=== PATIENT | male | born 1970 ===

== ENCOUNTER 2016-07-11 13:04 | Emergency (ER) | payer MEDICAID, OTHER ==
[2016-07-11 13:05] VITALS: BMI 31.6
[2016-07-11 13:47] VITALS: TEMP 98.4; O2SAT 97
--- NOTE | 2016-07-11 14:13 | C.PDOC ---
History Of Present Illness 46 year old male presents to the ED with complaints of an itchy rash to his upper back that spread throughout his body for the past 4 days. Patient has not taken anything for it and denies difficulty breathing, swelling, fever, new medications, new food, or any other complaints at this time. Time Seen by Provider: 07/11/16 14:04 Chief Complaint (Nursing): Abnormal Skin Integrity History Per: Patient History/Exam Limitations: no limitations Onset/Duration Of Symptoms: Days Current Symptoms Are (Timing): Still Present Quality Of Symptoms: Itching Severity: Mild Past Medical History Reviewed: Historical Data, Nursing Documentation, Vital Signs Vital Signs: Last Vital Signs Temp 98.4 F 07/11/16 13:44 Pulse 78 07/11/16 14:56 Resp 17 07/11/16 14:56 BP 138/72 07/11/16 14:56 Pulse Ox 97 07/11/16 17:59 - Medical History PMH: No Chronic Diseases - [facility] Procedures TETANUS TOXOID ADMINIST (10/29/01) Family History: States: Unknown Family Hx - Social History Hx Alcohol Use: No Hx Substance Use: No Review Of Systems Except As Marked, All Systems Reviewed And Found Negative. Constitutional: Negative for: Fever, Chills ENT: Negative for: Mouth Swelling, Throat Swelling Respiratory: Negative for: Cough, Shortness of Breath Gastrointestinal: Negative for: Vomiting, Diarrhea Skin: Positive for: Rash Neurological: Negative for: Weakness, Numbness Physical Exam - Physical Exam Appears: Non-toxic, No Acute Distress Skin: Warm, Dry, Rash (+Diffuse macular rash that is mildly scaly with irrgular edges.) Tongue: Normal Appearing, No Swelling Lips: Normal Appearing, No Swelling Throat: Normal Neck: Supple Cardiovascular: Rhythm Regular Respiratory: Normal Breath Sounds, No Wheezing Gastrointestinal/Abdominal: Soft Extremity: Normal ROM Neurological/Psych: Oriented x3, Normal Speech, Normal Cognition ED Course And Treatment O2 Sat by Pulse Oximetry: 97 (Room air) Pulse Ox Interpretation: Normal Progress Note: Patient treated with Benadryl, Pepcid, and Prednisone. Medical Decision Making Medical Decision Making: Discussed pitirosis vs hives with pt, plan treat as hives, as discussed time will tell Disposition Counseled Patient/Family Regarding: Need For Followup - Disposition Referrals: [facility] [Outside] Disposition: HOME/ ROUTINE Disposition Time: 14:10 Condition: GOOD Prescriptions: DiphenhydrAMINE [Benadryl] 1 cap PO Q6H PRN #30 cap PRN Reason: rash Prednisone [Deltasone] 2 tab PO DAILY #20 tablet Famotidine [Pepcid] 1 tab PO BID #30 tab Instructions: Urticaria (ED) Print Language: CZECH - Clinical Impression Clinical Impression: Urticaria - Scribe Statement The provider has reviewed the documentation as recorded by the Scribe Rey vargas. All medical record entries made by the [place] were at my direction and personally dictated by me. I have reviewed the chart and agree that the record accurately reflects my personal performance of the history, physical exam, medical decision making, and the department course for this patient. I have also personally directed, reviewed, and agree with the discharge instructions and disposition.
[2016-07-11 14:57] VITALS: BP 138/72; PULSE 78; RESP 17
== END 2016-07-11 14:58 | disposition home or self-care (01) ==
LOC: C.ER 13:04
DX: L50.9 Urticaria, unspecified (principal)

== ENCOUNTER 2018-01-05 22:14 | Emergency (ER) | payer MEDICAID, OTHER ==
[2018-01-05 22:14] VITALS: BMI 31.6
[2018-01-05 22:39] VITALS: RESP 18
--- NOTE | 2018-01-05 23:25 | C.PDOC ---
History Of Present Illness 47 year old male comes in to ED complaining of colicky epigastric and LUQ abdominal pain that started today. Patient is positive for constipation and diet consists of pork, rice, and beans. Otherwise he denies any nausea, vomiting, or diarrhea. Time Seen by Provider: 01/05/18 23:16 Chief Complaint (Nursing): Abdominal Pain History Per: Patient History/Exam Limitations: no limitations Onset/Duration Of Symptoms: Days Current Symptoms Are (Timing): Still Present Past Medical History Reviewed: Historical Data, Nursing Documentation, Vital Signs Vital Signs: Last Vital Signs Temp 98.5 F 01/05/18 22:35 Pulse 68 01/05/18 22:35 Resp 18 01/05/18 22:35 BP 167/118 H 01/05/18 22:35 Pulse Ox 99 01/05/18 22:35 - [email or web address] Procedures TETANUS TOXOID ADMINIST (10/29/01) Family History: States: No Known Family Hx - Social History Hx Alcohol Use: No Hx Substance Use: No - Immunization History Hx Tetanus Toxoid Vaccination: No Hx Influenza Vaccination: No Hx Pneumococcal Vaccination: No Review Of Systems Except As Marked, All Systems Reviewed And Found Negative. Constitutional: Negative for: Fever, Chills Cardiovascular: Negative for: Chest Pain Respiratory: Negative for: Shortness of Breath Gastrointestinal: Positive for: Abdominal Pain (colicky epigastric and LUQ pain), Constipation. Negative for: Nausea, Vomiting, Diarrhea Neurological: Negative for: Weakness, Numbness Physical Exam - Physical Exam Appears: Non-toxic, No Acute Distress Skin: Warm, Dry Head: Atraumatic, Normacephalic Eye(s): bilateral: Normal Inspection Oral Mucosa: Moist Respiratory: Normal Breath Sounds, No Rales, No Rhonchi, No Wheezing Gastrointestinal/Abdominal: Other (Tympanic in epigastrium; Dull in LUQ; Negative for Minaya's and McBurney's) Neurological/Psych: Oriented x3, Normal Speech Gait: Steady ED Course And Treatment O2 Sat by Pulse Oximetry: 99 (RA) Pulse Ox Interpretation: Normal Medical Decision Making Medical Decision Making: Impression: Abdominal pain Plan: --Magnesium Citrate --Toradol abd colic, epigastric and tympanic neg Minaya's McBurneuys defer w/u with informed consent in favor of empiric tx with laxative and re-eval in AM PRN diet and exercise changes educated Disposition Doctor Will See Patient In The: Office Counseled Patient/Family Regarding: Studies Performed, Diagnosis - Disposition Referrals: [facility] [Outside] [employer] [facility] [Outside] [facility] [Outside] [facility] [Outside] Disposition: HOME/ ROUTINE Disposition Time: 23:25 Condition: GOOD Additional Instructions: aletha un purgante ahora re-evalua hawkins molestia del abdomen despues de evacuarse 2-3 veces regressa en la manana si las sintoma no son mucho mejores con el tratamiento encima Cambios de dieta y ejercisio Aletha Purgantes de vez en cuando aly necessario. Instructions: Constipation, Adult (DC), Gas and Bloating (ED) Forms: [employer] (Nepali) Print Language: KOSOVAN - Clinical Impression Clinical Impression: Abdominal colic - Scribe Statement The provider has reviewed the documentation as recorded by the Yovana Fowler Provider Attestation: All medical record entries made by the Scribe were at my direction and personally dictated by me. I have reviewed the chart and agree that the record accurately reflects my personal performance of the history, physical exam, medical decision making, and the department course for this patient. I have also personally directed, reviewed, and agree with the discharge instructions and disposition.
[2018-01-05] MEDS ORDERED: Magnesium Citrate Oral SOL (300 ml) PO ONE (23:27)
[2018-01-05] MEDS ORDERED: Magnesium Citrate Oral SOL (300 ml) ONE (23:36)
[2018-01-05 23:41] VITALS: BP 160/80; PULSE 88; TEMP 97.9
[2018-01-06 02:05] VITALS: O2SAT 99
== END 2018-01-05 23:41 | disposition home or self-care (01) ==
LOC: C.ER 22:14
DX: R10.84 Generalized abdominal pain (principal)
CPT/HCPCS: 96372; 99283; J1885